=== PATIENT | female | born 1935 | race Caucasian/White ===

== ENCOUNTER → 2016-09-12 | Outpatient (CLI) | payer MEDICARE ==
[~2016-09-12] MED LIST: ALPR.5 PO; CHOL1TAB42 PO; CYCL5TAB PO; FOLI1TAB6 PO; GLUC100017 PO; HYDR-3580 PO; LIPI10TA PO; PRED5TAB PO; PRIL20TA2 PO; ZANT300T PO
[2016-09-17 13:53] LABS: THROMBIN TIME FOR LA ND sec (13-19)
== END ==
LOC: CLAB 11:28
PROVIDERS: ATTEND Surgery Vascular Surgery
DX: M32.12 Pericarditis in systemic lupus erythematosus (principal); Z95.828 Presence of other vascular implants and grafts
CPT/HCPCS: 36415; 81241; 83090; 85240; 85300; 85303; 85306; 85598; 85613; 85730

== ENCOUNTER 2016-11-04 07:26 | Inpatient (IN) | payer MEDICARE ==
[~2016-11-04] VITALS: Ht 154.9 cm; Wt 43.0 kg
[2016-11-04] VITALS (10 sets, daily range): BP systolic 136–164; BP diastolic 72–87; PULSE 74–86; RESP 16–18; TEMP 97.4–98.4; O2SAT 96–99
[2016-11-04] MEDS ORDERED: METOPROLOL TARTRATE 25 MG TAB PO PRN (08:00)
[2016-11-04] MEDS ORDERED: POVIDONE IODINE 5% (ANTISEPSIS KIT) 4 APPLICATIONS EACH NARE PRN (08:00)
[2016-11-04] MEDS ORDERED: INSULIN HUMAN REGULAR 1,000 UNITS/10 ML VIAL SQ PRN (08:00)
[2016-11-04] MEDS ORDERED: LACTATED RINGER'S 1000 ML IV PRN (08:00)
[2016-11-04] MEDS ORDERED: ceFAZolin 1,000 MG/NS 100 ML IV SCH ×2 (08:00)
[2016-11-04] MEDS ORDERED: SODIUM CHLORID 0.9% 500 ML IV PRN (08:00)
[2016-11-04] MEDS ORDERED: CHLORHEXIDINE GLUCONATE 2 % 1 PACK (2 CLOTHS) TOPICAL PRN (08:00)
[2016-11-04 08:31] LABS: AUTOMATED NEUTROPHIL # 6.8 TH/MM3 (1.8-7.7); BASOPHIL # 0.1 TH/MM3 (0-0.2); BASOPHIL % 0.7 % (0.0-2.0); EOSINOPHIL # 0.2 TH/MM3 (0-0.4); EOSINOPHIL % 2.5 % (0.0-4.0); HEMATOCRIT 33.3 % (35.0-46.0); HEMO FLAGS DIFF FINAL; LYMPH % 10.4 % (9.0-44.0); LYMPHOCYTE # 0.9 TH/MM3 (1.0-4.8); MEAN CELL VOLUME 85.3 FL (80.0-100.0); MEAN CORPUSCULAR HEMOGLOBIN 28.2 PG (27.0-34.0); MONO % 10.9 % (0.0-8.0); NEUT % 75.5 % (16.0-70.0); PLATELET COUNT 261 TH/MM3 (150-450); WHITE BLOOD COUNT 8.9 TH/MM3 (4.0-11.0)
[2016-11-04 08:41] LABS: APTT (PATIENT) 30.5 SEC (24.3-30.1); PROTHROMBIN TIME - PATIENT 11.3 SEC (9.8-11.6)
[2016-11-04 08:49] LABS: ALT (GPT) 16 U/L (10-53); ANION GAP 8 MEQ/L (5-15); AST (GOT) 18 U/L (15-37); BICARBONATE 28.7 MEQ/L (21.0-32.0); BLOOD UREA NITROGEN 18 MG/DL (7-18); CHLORIDE 101 MEQ/L (98-107); GLOMERULAR FILTRATION RATE 97 ML/MIN (>89); POTASSIUM 3.8 MEQ/L (3.5-5.1); SODIUM (NA) 138 MEQ/L (136-145)
[2016-11-04 08:52] LABS: ALKALINE PHOSPHATASE 165 U/L (45-117); TOTAL BILIRUBIN ADULT 0.6 MG/DL (0.2-1.0)
--- NOTE | 2016-11-04 10:30 | EKG ---
Date Performed: 11/04/2016 Time Performed: 07:58:46 PTAGE: 80 years EKG: BASELINE ARTIFACT PRESENT. Sinus rhythm LEFT ANTERIOR FASCICULAR BLOCK ABNORMAL ECG NO PREVIOUS TRACING DOCTOR: Aj Donohue Interpretating Date/Time 11/04/2016 10:28:53
[2016-11-04] MEDS ORDERED: SODIUM CHLORID 0.9% 500 ML INJ 500 ML IV ONE (12:00)
[2016-11-04] MEDS ORDERED: PHENYLEPH/NS 1000 MCG/10 ML SYR IV ONE (12:00)
[2016-11-04] MEDS ORDERED: LACTATED RINGER'S 1000 ML INJ 1,000 ML IV ONE (12:00)
[2016-11-04] MEDS ORDERED: IOHEXOL 300 MG/ML 100 ML BTL (for Rad CT) IV ONE (12:00)
[2016-11-04] MEDS ORDERED: SUGAMMADEX SODIUM 200 MG/2 ML VIAL IV PUSH ONE ×2 (12:00)
[2016-11-04] MEDS ORDERED: ePHEDrine/NS 25 MG/5 ML SYR IV ONE (12:00)
[2016-11-04] MEDS ORDERED: PROPOFOL 200 MG/20 ML AMP IV ONE (12:00)
[2016-11-04] MEDS ORDERED: NORMOSOL R INJ 1,000 ML IV ONE (12:00)
[2016-11-04] MEDS ORDERED: ONDANSETRON HCL 4 MG/2 ML VIAL IV PUSH ONE (12:00)
[2016-11-04] MEDS ORDERED: RESP: ALBUTEROL 2.5 MG/3 ML NEB (PRN) ONE (14:21)
[2016-11-04] MEDS ORDERED: HYDROmorphone HCL PF 2 MG/ML VIAL ONE (14:28)
[2016-11-04] MEDS ORDERED: ACETAMINOPHEN 1000 MG/100 ML VIAL IV ONE (14:28)
[2016-11-04] MEDS ORDERED: fentaNYL CITRATE 250 MCG/5 ML AMP ONE (14:28)
[2016-11-04] MEDS ORDERED: HEPARIN SODIUM - SQ 10,000 UNITS/ML VIAL ONE (14:47)
[2016-11-04] MEDS ORDERED: PROTAMINE SULFATE 50 MG/5 ML VIAL ONE (14:47)
[2016-11-04] MEDS ORDERED: BUPIVACAINE/EPINEPHRINE 0.5% PF 30 ML VIAL ONE (14:47)
[2016-11-04] MEDS ORDERED: IOHEXOL 350 MG/ML 50 ML BTL (for RAD DIAG) ONE (15:37)
[2016-11-04] MEDS: HEPARIN SODIUM - IV 10,000 UNITS/10 ML VIAL ONE ×2 (16:01→16:23)
[2016-11-04] MEDS ORDERED: SODIUM CHLORIDE 0.9% FLUSH 10 ML FLUSH IV FLUSH PRN (18:00)
[2016-11-04] MEDS ORDERED: DO NOT ADM ANY ANTICOAGULANT DRUGS PRN (18:00)
[2016-11-04] MEDS ORDERED: ACETAMINOPHEN/HYDROcodone 325 MG/7.5 MG TAB PO PRN (18:15)
[2016-11-04] MEDS ORDERED: MORPHINE SULFATE 4 MG/ML INJ IV PRN (18:15)
[2016-11-04] MEDS ORDERED: POTASSIUM CHLOR 20 MEQ 100 ML x 2 BAGS IV PRN (18:15)
[2016-11-04] MEDS ORDERED: ONDANSETRON HCL 4 MG/2 ML VIAL IV PUSH PRN (18:15)
[2016-11-04] MEDS ORDERED: POTASSIUM CHLOR 20 MEQ/100 ML x 1 BAG IV PRN (18:15)
[2016-11-04] MEDS ORDERED: MAGNESIUM SULFATE 1 GM/100 ML IV PRN (18:15)
[2016-11-04] MEDS ORDERED: LACTATED RINGER'S 500 ML INJ IV SCH (18:15)
[2016-11-04] MEDS ORDERED: POTASSIUM PHOSPHATE 21 MMOL/NS 250 ML IV PRN ×2 (18:15)
[2016-11-04] MEDS ORDERED: ATORVASTATIN 10 MG TAB PO SCH (21:00)
[2016-11-04] MEDS: SODIUM CHLORIDE 0.9% FLUSH 10 ML FLUSH IV FLUSH SCH (21:45)
[2016-11-04] MEDS: ALPRAZolam 0.5 MG TAB PO SCH (21:45)
[2016-11-05] VITALS (18 sets, daily range): BP systolic 142–183; BP diastolic 85–93; PULSE 73–96; RESP 16–18; TEMP 97.7–98.2; O2SAT 95–99
--- NOTE | 2016-11-05 07:47 | MP ---
cc: MILES DELGADO M.D. DATE OF SURGERY November 04, 2016 PREOPERATIVE DIAGNOSIS Abdominal aortic aneurysm - 5.8 cm diameter. POSTOPERATIVE DIAGNOSIS Abdominal aortic aneurysm - 5.8 cm diameter. PROCEDURE Percutaneous endovascular aneurysm repair. SURGEON Miles Delgado MD RESILIENT TILE INSTALLER NAJMA Wills ANESTHESIA General endotracheal. DESCRIPTION OF THE OPERATIVE PROCEDURE With the patient in the supine position, general endotracheal anesthesia was induced, the abdomen, both groins and thighs were prepped with Hibiclens and draped in a sterile fashion. 1 gram of Ancef was administered intravenously and following a protocol time-out, the skin and subcutaneous tissue surrounding the right and left common femoral access sites preemptively infiltrated with 0.5% Marcaine with epinephrine. Both femoral arteries were accessed identically as follows: Under ultrasound guidance, 18 gauge needles were inserted into the mid-common femoral lumens and J-wires advanced under fluoroscopic guidance into the external iliac arteries. 7-Hungarian hemostatic sheaths were deployed bilaterally. Angled glide wires were then guided into the thoracic aorta. Perclose devices were pre-positioned at the 10 and 2 o'clock positions bilaterally after which the 7-Hungarian sheaths were replaced. The angled glide wires were exchanged for Amplatz wires over Berenstein catheters. A 12 and a 16-Hungarian hemostatic sheath was deployed via the right and left femoral artery respectively. A marker pigtail catheter was advanced via the right femoral sheath to the suprarenal aorta and flush aortogram identified origins of the renal arteries. The main body was then delivered through the left femoral 16-Hungarian sheath and, under fluoroscopic guidance, positioned just distal to the origin of the renal arteries and pre-deployed. The contralateral gate was engaged with an angled glide Berenstein catheter combination. A Compliant balloon was inflated within the endoprosthetic lumen to ensure intraluminal localization. The pigtail catheter was replaced on the right side and retrograde injection of diluted contrast via the right femoral sheath identified, the iliac bifurcation allowing for proper length selection of the contralateral iliac limb. This limb was deployed and afterwards the aortic/main body deployment completed. The aortic, iliac, seal zones and overlap areas were then gently balloon dilated with the Compliant balloon. Finally, completion angiogram revealed secure repair with no technical defects. Retrograde flow via a lumbar artery on the right side represented a type 2 endoleak but no type 1 leaks were apparent. It should be noted that, after placement of the hemostatic sheaths, 5000 units of heparin were administered, ACT measuring 190. An additional 1000 units of heparin was administered to bring the ACT above 200. At the completion of the procedure, the sheaths were removed and hemostasis achieved with the pre-positioned Perclose devices. Heparin was reversed with 10 mg of protamine. There were no operative complications. The patient returned to the PACU in stable condition having tolerated the procedure well. Miles Delgado MD JTS/SSB /5:29 PM /7:37 AM
[2016-11-05] MEDS: SODIUM CHLORIDE 0.9% FLUSH 10 ML FLUSH IV FLUSH SCH (08:44)
[2016-11-05] MEDS: ALPRAZolam 0.5 MG TAB PO SCH (08:44)
[2016-11-05] MEDS ORDERED: ASPIRIN EC 81 MG TABEC PO SCH (09:00)
[2016-11-05] MEDS ORDERED: PANTOPRAZOLE SOD 20 MG DELAYED RELEASE TAB PO SCH (09:00)
== END 2016-11-05 13:59 | disposition home or self-care (01) | DRG 269 ==
LOC: HSDI 07:26 → HCIN 18:49
PROVIDERS: ADMIT Surgery Vascular Surgery; ATTEND Surgery Vascular Surgery
PROC: 04V03D6 (ICD-10-PCS; principal; 2016-11-04 14:37)
DX: I71.4 Abdominal aortic aneurysm, without rupture (principal); J44.9 Chronic obstructive pulmonary disease, unspecified; I10 Essential (primary) hypertension; I25.10 Atherosclerotic heart disease of native coronary artery without angina pectoris; F17.210 Nicotine dependence, cigarettes, uncomplicated; K21.9 Gastro-esophageal reflux disease without esophagitis
CPT/HCPCS: 75630; 80053; 85025; 85610; 85730; 86850; 86900; 86901; 86920; 93005; C1725; C1769; J0131; J0690; J1170; J1644; J2370; J2405; J2720; J3010; J7040; J7120; J7613; Q9967